=== PATIENT | male | born 1990 | race African-American/Black ===

== ENCOUNTER 2020-08-17 15:16 | Outpatient (REF) | payer OTHER, SELFPAY | END 2020-08-17 15:17 | disposition home or self-care (01) | LOC: HO.LAB 15:16 | PROVIDERS: Visit Provider Internal Medicine | DX: Z20.822 Contact with and (suspected) exposure to COVID-19 (principal) | CPT/HCPCS: 36415; C9803; U0003 ==

== ENCOUNTER 2020-08-24 13:15 | Outpatient (REF) | payer OTHER, SELFPAY | END 2020-08-24 13:16 | disposition home or self-care (01) | LOC: HO.LAB 13:15 | PROVIDERS: Visit Provider Internal Medicine | DX: Z20.822 Contact with and (suspected) exposure to COVID-19 (principal) | CPT/HCPCS: 36415; C9803; U0003 ==